=== PATIENT | female | born 1965 | race Caucasian/White ===

== ENCOUNTER 2023-09-06 15:09 | Outpatient (AMB) | payer OTHER, SELFPAY ==
--- NOTE | 2023-09-06 15:11 | MHC.OFFVIS ---
Vital Signs 09/06/23 15:12 Height 5 ft 6 in Weight 130 lb 1.164 oz BMI 21.0 BP 118/56 L Blood Pressure Location Lt brachial Position Sitting Intake Visit Reasons: Colonoscopy Screening Intake Note: New patient in office today for colonoscopy screening. Accounts Payable Specialist Required: No Allergies No Known Allergies Allergy (Verified 09/06/23 15:17) HPI Comments Details: A very pleasant, 58 y/o female referred for screening colonoscopy- normal 8-10 years ago Her mom had colon cancer-@ 73 Appetite is good She has normal bowel She gets regular exercise She has no GI or general No nausea, vomiting, hematemesis, hematochezia fever chills PFSH Family History (Updated 09/06/23 @ 15:34 by Teresa Brian PA-C) Mother Colon cancer Social History (Updated 09/06/23 @ 15:15 by Teresa Brian PA-C) Household Members: Spouse Household Members Other:: 2 children Alcohol intake: never Patient Tobacco Use Status: Never used Tobacco Current occupational status: employed Review of Systems Const Details: All systems reviewed and are negative All systems reviewed & are unremarkable except as noted in HPI and below GI Denies change in bowel habits, Denies heartburn, Denies nausea and Denies vomiting Physical Exam Vital Signs: Last Vital Signs BP 118/56 L 09/06/23 15:12 BMI result Body Mass Index 21.0 Alert oriented no acute distress Anicteric Cardiovascular, regular rate rhythm no murmurs noted Lungs, clear to auscultation bilaterally no wheezes rales or rhonchi Abdomen-flat positive pulse sounds soft nontender Extremities, no edema clubbing or cyanosis Skin, no rashes Psych, cooperative, normal, Assessment & Plan Assessment & Plan (1) Encounter for screening colonoscopy: Comment: Very pleasant, 58-year-old female no health concerns Family history colon cancer, mother at age 73 Discussed procedure, rare risks need for escorted due to anesthesia Code(s): Z12.11 - Encounter for screening for malignant neoplasm of colon Category: Medical Plan: colonoscopy (2) Family history of colon cancer in mother: Code(s): Z80.0 - Family history of malignant neoplasm of digestive organs Category: Medical Plan: Colonoscopy Plan Screening colonoscopy Orders: Orders Colonoscopy - GI Use Only 09/06/23 Z12.11 - Encounter for screening for malignant neoplasm of colon Medications: New polyethylene glycol 3350 (Miralax) Take as directed by mouth the day before your procedure. 238 grams PO ONCE 1 day 238 grams 0RF laxative effect bisacodyl (Dulcolax (bisacodyl)) Day before procedure @ 12 noon Take 4 tablets by mouth followed by large glass of water 20 mg (4 x 5 mg) PO ONCE 1 day PRN 4 tabs 0RF colonoscopy prep Z12.11 - Encounter for screening for malignant neoplasm of colon Patient Instructions: Screening colonoscopy MiraLax Gatorade prep, reviewed literature given Encouraged to call questions or concerns Coding Level of Care Code New Pt Level 3 (95081) Diagnoses Encounter for screening colonoscopy Z12.11 Family history of colon cancer in mother Z80.0 Time Spent (min) 20
[2023-09-06 15:12] VITALS: BP 118/56; BMI 21.0
== END 2023-09-06 16:03 | disposition home or self-care (01) ==
PROVIDERS: PCP Nurse Practitioner Family; Visit Provider Physician Assistant
DX: Z01.818 Encounter for other preprocedural examination (principal); Z12.11 Encounter for screening for malignant neoplasm of colon; Z80.0 Family history of malignant neoplasm of digestive organs
CPT/HCPCS: 99212; S0285

== ENCOUNTER → 2023-09-06 15:09 | Outpatient (BNVA) | payer OTHER, SELFPAY | PROVIDERS: PCP Nurse Practitioner Family; Visit Provider Physician Assistant ==

== ENCOUNTER 2023-09-13 15:00 | Outpatient (REF) | payer OTHER, SELFPAY | END 2023-09-13 15:01 | disposition home or self-care (01) | LOC: HO.SH 15:00 | PROVIDERS: PCP Nurse Practitioner Family; Visit Provider Nurse Practitioner Family | DX: Z01.118 Encounter for examination of ears and hearing with other abnormal findings (principal); H93.293 Other abnormal auditory perceptions, bilateral | CPT/HCPCS: 92557 ==

== ENCOUNTER 2024-04-10 10:54 | Day surgery (SDC) | payer OTHER, SELFPAY ==
[2024-04-06 13:04] VITALS: BMI 21.0
--- NOTE | 2024-04-07 11:47 | HO.ANESPROP2 ---
Documented by User: Kami Joiner NP 04/07/24 11:47 HPI - Anesthesia Eval Consult details Narrative: 58yo F for Colonoscopy PMFSH Active Problems Active Problems: All Active Problems Family history of colon cancer in mother (Acute) Encounter for screening colonoscopy (Acute) Past Medical History Medical History (Updated 04/06/24 @ 13:03 by Lashaun Gan RN) Family history of colon cancer in mother Family History Family History (Updated 09/06/23 @ 15:34 by Teresa Brian PA-C) Mother Colon cancer Surgical History Surgical History H/O colonoscopy Social History Social History (Updated 09/06/23 @ 15:15 by Teresa Brian PA-C) Household Members: Spouse Household Members Other:: 2 children Are you a primary healthcare network pricing consultant to a significant other at home: No Do you presently have visiting nurse or other home services: No Alcohol intake: never Patient Tobacco Use Status: Never used Tobacco Use of substances other than those prescribed or required for medical reasons: No Have you been hit, kicked, punched, or otherwise hurt by someone within the past year? If so, by whom?: No Are you DNR?: No Advance Directives: No Advance Directives Information Provided: Yes ( Tico Sargent (per patient)) Advance Directives on File: No (No paperwork on file) Recently lost weight without trying: No How much weight loss: Not applicable Eating poorly because of decreased appetite: No Nutrition screen score: 0 Nutrition Risks: No Nutritional Risk Patient : No : No Poor oral hygiene: No Current occupational status: employed Meds Allergies Allergy/AdvReac Type Severity Reaction Status Date / Time No Known Allergies Allergy Verified 04/10/24 11:05 Home Medications ?Medication ?Instructions ?Recorded ?Confirmed ?Last Taken ?Type No Known Home Meds 04/10/24 04/10/24 Unknown History Exam Height,Weight and Vital Signs: Height 5 ft 6 in Weight 58.967 kg Assessment and Plan Assessment Anesthesia Assessment: Chart Reviewed Documented by User: Camille Mock MD 04/10/24 11:27 [facility] Past Medical History Medical History (Updated 04/06/24 @ 13:03 by Lashaun Gan, JONELLE) Family history of colon cancer in mother Family History Family History (Updated 09/06/23 @ 15:34 by Teresa Brian PA-C) Mother Colon cancer Family history of problems with anesthesia: No Surgical History Surgical History H/O colonoscopy History of Problems with Anesthesia: No Social History Social History (Updated 09/06/23 @ 15:15 by Teresa Brian PA-C) Household Members: Spouse Household Members Other:: 2 children Are you a primary healthcare network pricing consultant to a significant other at home: No Do you presently have visiting nurse or other home services: No Alcohol intake: never Patient Tobacco Use Status: Never used Tobacco Use of substances other than those prescribed or required for medical reasons: No Have you been hit, kicked, punched, or otherwise hurt by someone within the past year? If so, by whom?: No Are you DNR?: No Advance Directives: No Advance Directives Information Provided: Yes ( Tico Sargent (per patient)) Advance Directives on File: No (No paperwork on file) Recently lost weight without trying: No How much weight loss: Not applicable Eating poorly because of decreased appetite: No Nutrition screen score: 0 Nutrition Risks: No Nutritional Risk Patient : No : No Poor oral hygiene: No Current occupational status: employed Meds Allergies Allergy/AdvReac Type Severity Reaction Status Date / Time No Known Allergies Allergy Verified 04/10/24 11:05 Home Medications ?Medication ?Instructions ?Recorded ?Confirmed ?Last Taken ?Type No Known Home Meds 04/10/24 04/10/24 Unknown History Exam Airway Mallampati Class: II (cap,laterally) TM Dist: >3cm Neck ROM: Full Heart: rrr Lungs: cta Assessment and Plan Assessment Anesthesia Assessment: Anesthesia Plan Discussed Final Anesthetic Review Family History of Problems with Anesthesia: No History of Problems with Anesthesia: No NPO: Yes ASA Class: I Final Preanesthetic Review: No Changes in Pt Med Stat, Meds/Allgs Chart Reviewed and Consent Obtained/Reviewed Patient Risk: Low Procedure Risk: Low Anesthetic Plan Anesthetic Plan: MAC: Disposition: Standard PACU
[2024-04-10 11:08] VITALS: BP 121/65; PULSE 47; RESP 16; TEMP 36.6; O2SAT 100; BMI 21.4
[2024-04-10] MEDS: Lactated Ringers 1,000 ML 100 ML IVCONT (11:29)
--- NOTE | 2024-04-10 12:08 | MHC.SHP ---
Pre-Procedural Eval Section A - 24 Hr Update-Section A only Date of Service: 04/10/24 The patient is an INPATIENT: No The patient has been examined within 24 hours of the surgical procedure. The History & Physical has been completed within 30 days and I have reviewed it.: No Section B - Complete if H&P > 30 days Chief Complaint: screening Relevant Family History (Specify if Yes): Yes Relevant Social History: None Present Medications: see Short Stay Collaborative assessment Medical History: No relevant PMH History of Previous Operations: Relevant previous surgery/procedure and date(s) (History of colonoscopy) Allergies: Allergies Allergy/AdvReac Type Severity Reaction Status Date / Time No Known Allergies Allergy Verified 04/10/24 11:05 Review of Systems Sugical H&P ROS: Negative: Constitution, Cardiovascular, Respiratory and Gastrointestinal Exam Surgical H&P Exam: Normal: Heart, Normal: Lungs, Normal: Extremities and Normal: Abdomen Plan Diagnosis/Plan: Unchanged I have reviewed the history and physical and performed a pertinent physical examination on my patient. No changes have occurred unless specified. Time Spent With Patient Time: Total time managing care of this patient today ____ minutes.
--- NOTE | 2024-04-10 12:49 | P.OPN-COLO_ITS ---
Colonoscopy Operative Note Operative Note Date of Service: 04/10/24 Narrative: COLONOSCOPY TILL CECUM Pre-op diagnosis: Colon cancer screening (2nd colon). Post-op diagnosis:? Hemorrhoids Endoscopist:? Enrique Ledezma MD Anesthesia:?MAC Consent: Indications for the procedure and potential complications of bleeding, perforation, reaction to medications and missed diagnosis were discussed with the patient and informed consent was obtained. Instrument: Olympus PCF H 190 L variable stiffness pediatric colonoscope Monitoring: Vital signs and clinical assessment, intermittent blood pressure monitoring, continuous EKG monitoring, Pulse oximetry and Carbon Dioxide monitoring were done throughout the procedure. Please see anesthesia flowsheet. Colon withdrawl time was 15 minutes. Procedure: The patient was placed in the left lateral decubitis position and pre-procedure medications were administered. After a digital rectal examination of the ano-rectum, the video colonoscope was inserted into the rectum and advanced through the colon to the cecum. The colonoscope was slowly withdrawn in a retrograde panoramic fashion and the colon mucosa was carefully examined including a retroflexed view of the rectum. Findings and interventions are described below. Procedure Difficulty: Colon was long and tortuous and there was some loop formation Findings: Terminal Ileum: Not evaluated Cecum: Normal Ascending Colon: Normal Transverse Colon: Normal Descending Colon: Normal Sigmoid Colon: Normal Rectum: Normal Ano-rectum: Small internal hemorrhoids Colon preparation: Good after copious irrigation. [place] Bowel Preparation Scale Right colon; 2 Transverse colon: 2 Left colon; 2 (0 = Unprepared colon segment with mucosa not seen due to solid stool that cannot be cleared. 1 = Portion of mucosa of the colon segment seen, but other areas of the colon segment not well seen due to staining, residual stool and/or opaque liquid. 2 = Minor amount of residual staining, small fragments of stool and/or opaque liquid, but mucosa of colon segment seen well. 3 = Entire mucosa of colon segment seen well with no residual staining, small fragments of stool or opaque liquid) Impression and Post Procedure Diagnosis: Colonoscopy Findings: No polyps were detected Small hemorrhoids on retroflexed exam. Plan: Repeat Colonoscopy in 10 years - patient was placed on the colonoscopy recall list (Dulcolax 10 mg daily starting 3 days prior to colonoscopy appointment for next colonoscopy). Above findings were reviewed with the patient and relevant handouts were given and the discharge area.
[2024-04-10 12:50] VITALS: BP 91/43; PULSE 52; RESP 18; TEMP 36.4; O2SAT 98
[2024-04-10 13:04] VITALS: BP 100/58; PULSE 51; RESP 18; TEMP 36.1; O2SAT 98
== END 2024-04-10 13:33 | disposition home or self-care (01) ==
PROVIDERS: PCP Nurse Practitioner Family; Visit Provider Internal Medicine Gastroenterology
PROC: 0DJD8ZZ Inspection of Lower Intestinal Tract, Via Natural or Artificial Opening Endoscopic (ICD-10-PCS; CPT 45378; principal; 2024-04-10 12:50)
DX: Z12.11 Encounter for screening for malignant neoplasm of colon (principal); K56.2 Volvulus; K64.8 Other hemorrhoids; Z80.0 Family history of malignant neoplasm of digestive organs
CPT/HCPCS: 45378; J2003; J2704

== ENCOUNTER → 2024-04-10 10:54 | Outpatient (BNV) | payer OTHER, SELFPAY | PROVIDERS: PCP Nurse Practitioner Family; Visit Provider Internal Medicine Gastroenterology | DX: Z12.11 Encounter for screening for malignant neoplasm of colon (principal); K64.8 Other hemorrhoids | CPT/HCPCS: 45378 ==